=== PATIENT | female | born 1990 | race Caucasian/White ===

== ENCOUNTER 2021-08-21 08:36 | Inpatient (IN) | payer BC, SELFPAY ==
[~2021-08-21 08:36] MED LIST: Bupivacaine/Epinephrine 0.25% 30 ML VIAL ONE
[2021-08-21] MEDS ORDERED: Butorphanol Tartrate 1 MG/ML VIAL SLOW IVP PRN (08:40)
[2021-08-21] MEDS ORDERED: Promethazine HCl 25 MG/ML VIAL IM PRN ×2 (08:40→17:22)
[2021-08-21] MEDS ORDERED: Misoprostol 200 MCG TAB PR PRN (08:40)
[2021-08-21] MEDS ORDERED: Diphenoxylate HCl/Atropine Tablet PO PRN ×2 (08:40)
[2021-08-21] MEDS ORDERED: Acetaminophen 500 MG TAB PO PRN (08:40)
[2021-08-21] MEDS ORDERED: HYDROcodone/Acetaminophen 5/325 mg Tablet PO PRN ×2 (08:40)
[2021-08-21] MEDS ORDERED: Lidocaine 1% (PF) 30 ML VIAL SC PRN (08:40)
[2021-08-21] MEDS ORDERED: Docusate 100 MG CAP PO PRN (08:40)
[2021-08-21] MEDS ORDERED: hydrALAZINE 20 MG/ML VIAL SLOW IVP PRN (08:40)
[2021-08-21] MEDS ORDERED: Ibuprofen 800 MG TAB PO PRN (08:40)
[2021-08-21] MEDS ORDERED: NS w/ Oxytocin 30 units 500 ML IV SCH ×2 (08:45)
[2021-08-21 09:37] VITALS: BMI 35.4
[2021-08-21] MEDS: Lactated Ringer's 1,000 ML IV SCH (10:28)
[2021-08-21 10:50] LABS: Hemoglobin 11.6 g/dL (12.0-15.5); Mean Corpuscular HGB CONC 32.2 g/dL (32.0-36.0); Mean Corpuscular Hemoglobin 28.4 pg (27.0-33.0); Mean Platelet Volume 10.6 fl (7.4-10.4); Platelet Count 325 10x3/uL (150-450); RBC Distribution Width 13.6 % (11.5-14.5); Red Blood Cell (RBC) Count 4.09 10x6/uL (3.90-5.03); White Blood Cell (WBC) Count 11.8 10x3/uL (3.5-10.5)
[2021-08-21 11:30] LABS: Syphilis Antibody Nonreactive (Nonreactive); Syphilis Antibody Index 0.04 S/CO (<1.00 Non-Reactive)
[2021-08-21 11:31] LABS: HIV (1/2) Antibody/Antigen Non-Reactive (NonReactive); HIV 1/2 INDEX 0.09 S/CO (<1.00); Hep B Surf Ag Non-Reactive S/CO (NonReactive)
[2021-08-21 11:39] LABS: HBSAg Index 0.16 S/CO (0-0.99)
[2021-08-21 11:57] LABS: SARS-CoV-2 NAA Rapid Test Not Detected (NotDetected)
[2021-08-21] MEDS ORDERED: Fentanyl 2 mcg/Bup 0.1% Cadd 100 ML ONE (16:34)
[2021-08-21] MEDS ORDERED: Acetaminophen 325 MG TAB PO PRN (17:22)
[2021-08-21] MEDS ORDERED: ePHEDrine Sulfate 50 MG/10 ML VIAL SLOW IVP PRN (17:22)
[2021-08-21] MEDS ORDERED: Lactated Ringer's 500 ML IV PRN (17:22)
[2021-08-21] MEDS ORDERED: diphenhydrAMINE 50 MG/ML VIAL IVP PRN (17:22)
[2021-08-21] MEDS ORDERED: Naloxone HCl 0.4 mg/ml Vial IVP PRN ×2 (17:22)
[2021-08-21] MEDS ORDERED: Ondansetron PF 4 MG/2 ML Vial IVP PRN (17:22)
[2021-08-21] MEDS ORDERED: Hydrocerin (Eucerin) Cream 120 gm Jar TOP PRN (17:22)
[2021-08-21] MEDS ORDERED: Communication Order-Pharmacy FS SCH (17:30)
[2021-08-21] MEDS: Fentanyl 2 mcg/Bupivacaine 0.1% Cassette 100 ML EPIDURAL SCH (22:52)
[2021-08-21] MEDS: Ondansetron PF 4 MG/2 ML Vial IVP PRN (22:59)
[2021-08-22] MEDS: Fentanyl 2 mcg/Bupivacaine 0.1% Cassette 100 ML EPIDURAL SCH (04:44)
[2021-08-22] MEDS: Ondansetron PF 4 MG/2 ML Vial IVP PRN (05:02)
[2021-08-22] MEDS ORDERED: Boostrix 0.5 ML (Tdap) VIAL IM ONE (06:49)
[2021-08-22] MEDS ORDERED: hydrALAZINE 20 MG/ML VIAL SLOW IVP PRN (06:49)
[2021-08-22] MEDS ORDERED: Benzocaine-Menthol 82.5 ML CAN TOP PRN (06:49)
[2021-08-22] MEDS ORDERED: Lanolin Ointment 7 GM TUBE TOP PRN (06:49)
[2021-08-22] MEDS ORDERED: Preparation H Ointment 28 GM TUBE PR PRN (06:49)
[2021-08-22] MEDS ORDERED: Misoprostol 200 MCG TAB VAG PRN (06:49)
[2021-08-22] MEDS ORDERED: HYDROcodone/Acetaminophen 5/325 mg Tablet PO PRN ×2 (06:49)
[2021-08-22] MEDS ORDERED: Zolpidem Tartrate 5 MG TAB PO PRN (06:49)
[2021-08-22] MEDS ORDERED: diphenhydrAMINE 25 MG CAP PO PRN (06:49)
[2021-08-22] MEDS ORDERED: Bisacodyl 10 MG SUPP PR PRN (06:49)
[2021-08-22] MEDS ORDERED: Milk Of Magnesia 30 ML UDCUP PO PRN (06:49)
[2021-08-22] MEDS ORDERED: Ondansetron PF 4 MG/2 ML Vial IVP PRN (06:49)
[2021-08-22] MEDS ORDERED: Witch Hazel-Glycerin 1 EACH JAR TOP PRN (06:51)
[2021-08-22] MEDS ORDERED: NS w/ Oxytocin 30 units 500 ML IV SCH (07:00)
[2021-08-22] MEDS: Ferrous Sulfate 325 MG TAB PO SCH ×2 (10:13→15:48)
[2021-08-22] MEDS: Prenatal Vitamin 1 TAB PO SCH (10:13)
[2021-08-22] MEDS: Docusate 100 MG CAP PO SCH ×2 (10:13→22:05)
[2021-08-22] MEDS: Lactated Ringer's 1,000 ML IV SCH (10:18)
[2021-08-22] MEDS: Ibuprofen 800 MG TAB PO SCH ×2 (14:21→22:04)
[2021-08-23] MEDS: Ibuprofen 800 MG TAB PO SCH (05:06)
[2021-08-23] MEDS: Ferrous Sulfate 325 MG TAB PO SCH (07:36)
[2021-08-23 08:12] VITALS: BP 105/56; TEMP 98.1
[2021-08-23] MEDS: Prenatal Vitamin 1 TAB PO SCH (08:42)
[2021-08-23] MEDS: Docusate 100 MG CAP PO SCH (08:42)
== END 2021-08-23 13:10 | disposition home or self-care (01) | DRG 807 ==
LOC: CSHLD 08:36 → CSHPP 08-22 09:20
PROVIDERS: ADMIT Obstetrics & Gynecology; ATTEND Obstetrics & Gynecology
PROC: 10D07Z6 Extraction of Products of Conception, Vacuum, Via Natural or Artificial Opening (ICD-10-PCS; principal; 2021-08-21)
PROC: 0W8NXZZ Division of Female Perineum, External Approach (ICD-10-PCS; 2021-08-21)
DX: O42.02 Full-term premature rupture of membranes, onset of labor within 24 hours of rupture (principal); Z37.0 Single live birth; Z3A.38 38 weeks gestation of pregnancy; Z20.822 Contact with and (suspected) exposure to COVID-19; Z90.49 Acquired absence of other specified parts of digestive tract; O99.844 Bariatric surgery status complicating childbirth; O76 Abnormality in fetal heart rate and rhythm complicating labor and delivery
CPT/HCPCS: 36415; 51702; 85027; 86780; 86850; 86900; 86901; 87340; 87389; J0595; J2405; J2590; J7120; U0002

== ENCOUNTER 2023-04-01 08:47 | Inpatient (IN) | payer OTHER ==
[~2023-04-01 08:47] MED LIST changes: +Bupivacaine 0.25% HCL 30 ML VIAL ONE; -Bupivacaine/Epinephrine 0.25% 30 ML VIAL ONE; +ePHEDrine Sulfate 50 MG/10 ML VIAL ONE
[2023-04-01] MEDS ORDERED: Ibuprofen 800 MG TAB PO PRN (08:50)
[2023-04-01] MEDS ORDERED: Promethazine HCl 25 MG/ML VIAL IM PRN ×2 (08:50→12:47)
[2023-04-01] MEDS ORDERED: Lidocaine 1% (PF) 30 ML VIAL SC PRN (08:50)
[2023-04-01] MEDS ORDERED: hydrALAZINE 20 MG/ML VIAL SLOW IVP PRN ×2 (08:50→18:26)
[2023-04-01] MEDS ORDERED: fentaNYL 50 mcg/mL 1 mL Vial SLOW IVP PRN (08:50)
[2023-04-01] MEDS ORDERED: Docusate 100 MG CAP PO PRN (08:50)
[2023-04-01] MEDS ORDERED: HYDROcodone/Acetaminophen 5/325 mg Tablet PO PRN ×2 (08:50)
[2023-04-01] MEDS ORDERED: Diphenoxylate HCl/Atropine Tablet PO PRN ×2 (08:50)
[2023-04-01] MEDS ORDERED: Carboprost 250 MCG/ML AMP IM PRN (08:50)
[2023-04-01] MEDS ORDERED: Misoprostol 200 MCG TAB PR PRN (08:50)
[2023-04-01] MEDS ORDERED: Ondansetron PF 4 MG/2 ML Vial IVP PRN ×3 (08:50→18:26)
[2023-04-01] MEDS ORDERED: Acetaminophen 500 MG TAB PO PRN (08:50)
[2023-04-01] MEDS ORDERED: Oxytocin 30 units/NS 500 ML 500 ML IV SCH ×4 (09:00→18:30)
[2023-04-01 09:37] LABS: Hematocrit 37.2 % (34.9-44.5); Hemoglobin 11.9 g/dL (12.0-15.5); Mean Corpuscular Hemoglobin 26.9 pg (27.0-33.0); Mean Platelet Volume 10.6 fl (7.4-10.4); Platelet Count 311 10x3/uL (150-450); Red Blood Cell (RBC) Count 4.43 10x6/uL (3.90-5.03); White Blood Cell (WBC) Count 13.8 10x3/uL (3.5-10.5)
[2023-04-01] MEDS ORDERED: fentaNYL/Ropivacaine Epidural 100 ML ONE (11:59)
[2023-04-01] MEDS ORDERED: Lactated Ringer's 500 ML IV PRN (12:47)
[2023-04-01] MEDS ORDERED: Moisturizing Cream (Eucerin) 113 GM JAR TOP PRN (12:47)
[2023-04-01] MEDS ORDERED: diphenhydrAMINE 50 MG/ML VIAL IVP PRN (12:47)
[2023-04-01] MEDS ORDERED: ePHEDrine Sulfate 50 MG/10 ML VIAL SLOW IVP PRN (12:47)
[2023-04-01] MEDS ORDERED: Naloxone HCl 0.4 mg/ml Vial IVP PRN ×2 (12:47)
[2023-04-01] MEDS ORDERED: Acetaminophen 325 MG TAB PO PRN (12:47)
[2023-04-01 12:49] LABS: HBSAg Index 0.15 S/CO (0-0.99); Hep B Surf Ag - L&D Non-Reactive S/CO (NonReactive)
[2023-04-01 12:51] LABS: Syphilis Antibody Nonreactive (Nonreactive); Syphilis Antibody Index 0.03 S/CO (<1.00 Non-Reactive)
[2023-04-01 12:52] LABS: HIV (1/2) Antibody/Antigen Non-Reactive (NonReactive); HIV 1/2 INDEX 0.11 S/CO (<1.00)
[2023-04-01] MEDS ORDERED: Communication Order-Pharmacy FS SCH (13:00)
[2023-04-01] MEDS ORDERED: fentaNYL 2 mcg/Ropivacaine 0.2% Epidural 100 ML CADD EPIDURAL SCH (13:00)
[2023-04-01] MEDS ORDERED: diphenhydrAMINE 25 MG CAP PO PRN (18:26)
[2023-04-01] MEDS ORDERED: Preparation H Ointment 28 GM TUBE PR PRN (18:26)
[2023-04-01] MEDS ORDERED: Lanolin Ointment 7 GM TUBE TOP PRN (18:26)
[2023-04-01] MEDS ORDERED: Milk Of Magnesia 30 ML UDCUP PO PRN (18:26)
[2023-04-01] MEDS ORDERED: Benzocaine-Menthol 82.5 ML CAN TOP PRN (18:26)
[2023-04-01] MEDS ORDERED: Misoprostol 200 MCG TAB VAG PRN (18:26)
[2023-04-01] MEDS ORDERED: Zolpidem Tartrate 5 MG TAB PO PRN (18:26)
[2023-04-01] MEDS ORDERED: Boostrix 0.5 ML (Tdap) VIAL (>/=7 yrs of age) IM ONE (18:26)
[2023-04-01] MEDS ORDERED: Bisacodyl 10 MG SUPP PR PRN (18:26)
[2023-04-01] MEDS: Lactated Ringer's 1,000 ML IV SCH (20:07)
[2023-04-01] MEDS: Ibuprofen 800 MG TAB PO SCH (20:52)
[2023-04-01] MEDS: Docusate 100 MG CAP PO SCH (21:56)
[2023-04-02] MEDS: HYDROcodone/Acetaminophen 5/325 mg Tablet PO PRN ×4 (02:20→15:54)
[2023-04-02] MEDS: Ibuprofen 800 MG TAB PO SCH ×2 (05:33→14:19)
[2023-04-02] MEDS ORDERED: Prenatal Vitamin 1 TAB PO SCH (09:00)
[2023-04-02] MEDS: Docusate 100 MG CAP PO SCH (09:23)
[2023-04-02] MEDS: Ferrous Sulfate 325 MG TAB PO SCH (09:57)
[2023-04-02 16:20] VITALS: BP 111/52; TEMP 97.6
== END 2023-04-02 20:45 | disposition home or self-care (01) | DRG 807 ==
LOC: CSHLD 08:47 → CSHANTE 20:55
PROVIDERS: ADMIT Obstetrics & Gynecology; ATTEND Obstetrics & Gynecology
PROC: 10E0XZZ Delivery of Products of Conception, External Approach (ICD-10-PCS; principal; 2023-04-01)
PROC: 10907ZC Drainage of Amniotic Fluid, Therapeutic from Products of Conception, Via Natural or Artificial Opening (ICD-10-PCS; 2023-04-01)
PROC: 10H07YZ Insertion of Other Device into Products of Conception, Via Natural or Artificial Opening (ICD-10-PCS; 2023-04-01)
DX: O99.284 Endocrine, nutritional and metabolic diseases complicating childbirth (principal); Z37.0 Single live birth; E28.2 Polycystic ovarian syndrome; N80.9 Endometriosis, unspecified; O99.892 Other specified diseases and conditions complicating childbirth; Z3A.38 38 weeks gestation of pregnancy
CPT/HCPCS: 51702; 85027; 86780; 86850; 86900; 86901; 87340; 87389; S0020